=== PATIENT | female | born 1960 | race Caucasian/White ===

== ENCOUNTER 2016-08-21 13:02 | Emergency (ER) | payer OTHER ==
[~2016-08-21] VITALS: Ht 165.1 cm; Wt 59.0 kg
[~2016-08-21 13:02] MED LIST: ALPRAZOLAM0.5 MG PO; AMOXICILLIN500 M2 PO; ASPIRIN81 M1 PO; ATIVAN1 MG PO; BACTRIM DS 8001 TA1 PO; BUPROPION HYDR150 M1 PO; CELEXA10 MG PO; CLARITIN10 MG PO; KENALOG 0.1% OI15 GM PO; LISINOPRIL10 MG PO; MEDROL DOSEPAK4 MG PO; MELOXICAM7.5 MG PO; Motrin,Rufen800 MG PO; NAPROSYN500 MG PO; NORCO 325 MG-51 TAB PO; SYNTHROID25 MCG PO; TRAZADONE HYDR100 MG PO; VISTARIL25 M1 PO; ZANTAC 150150 MG PO; ZOCOR20 MG PO; ZOCOR5 MG PO
[2016-08-21 14:11] LABS: BASO # 0.1 10*3/uL (0.0-0.1); EOS # 0.7 10*3/uL (0.0-0.4); EOS % 5.6 % (1.0-4.0); HEMATOCRIT 42.7 % (37.0-47.0); HEMOGLOBIN 14.1 g/dl (12.0-16.0); LYMPH # 3.9 10*3/uL (1.3-4.4); LYMPH % 31.9 % (27.0-41.0); MEAN CELL VOLUME 87.5 fl (81.0-99.0); MEAN CORPUSCULAR HGB 28.9 pg (27.0-31.0); MEAN PLATELET VOLUME 11.9 fl (9.6-12.3); MONO # 0.6 10*3/uL (0.1-1.0); MONO % 4.9 % (3.0-9.0); NEUT # 6.9 10*3/uL (2.3-7.9); NEUT % 56.4 % (47.0-73.0); PLATELET COUNT AUTOMATED 279 10*3/uL (130-400); RED BLOOD COUNT 4.88 10*6/uL (4.10-5.10); RED CELL DISTRI WIDTH 13.7 % (0-14.5); WHITE BLOOD COUNT 12.2 10*3/uL (4.8-10.8)
[2016-08-21 14:24] LABS: ALBUMIN 3.2 gm/dl (3.1-4.5); ALKALINE PHOSPHATASE 77 U/L (45-117); BILIRUBIN, TOTAL 0.4 mg/dl (0.2-1.0); BUN 14 mg/dl (7-24); CARBON DIOXIDE 28 mmol/L (21-32); CHLORIDE 102 mmol/L (98-107); CPK 69 U/L (26-192); EST GLOM FILT AFRICAN AMERICAN > 60 ml/min; GLUCOSE 145 mg/dL (65-99); POTASSIUM 4.3 mmol/L (3.5-5.1); SGOT/AST 16 IU/L (3-35); SGPT/ALT 20 U/L (12-78); SODIUM 139 mmol/L (136-145); TOTAL PROTEIN 7.3 gm/dL (6.4-8.2)
== END 2016-08-21 15:24 | disposition left against medical advice (07) ==
LOC: ED 13:02
PROVIDERS: Internal Medicine
DX: M54.5 Low back pain (principal); M25.562 Pain in left knee; F17.200 Nicotine dependence, unspecified, uncomplicated; Z90.49 Acquired absence of other specified parts of digestive tract; W10.9XXA Fall (on) (from) unspecified stairs and steps, initial encounter; Y93.89 Activity, other specified; Y92.9 Unspecified place or not applicable; Y99.9 Unspecified external cause status

== ENCOUNTER → 2016-08-24 | Outpatient (CLI) | payer OTHER ==
[~2016-08-24] MED LIST changes: +ASPIRIN ADULT L81 M2 PO; +ATORVASTATIN CA20 M1 PO; +CYCLOBENZAPRINE5 M3 PO; +HYDROCODONE BIT1 T11 PO; +IBU800 M1 PO; +LEVOTHYROXIN0.025 M1 PO; +METFORMIN HCL1000 MG PO; +METOPROLOL SUCC25 M2 PO
== END | disposition home or self-care (01) ==
LOC: RAD 13:12
DX: M47.896 Other spondylosis, lumbar region (principal); M54.5 Low back pain

== ENCOUNTER 2016-10-12 13:19 | Emergency (ER) | payer OTHER ==
[~2016-10-12] VITALS: Ht 165.1 cm; Wt 68.0 kg
[~2016-10-12 13:19] MED LIST changes: -ASPIRIN ADULT L81 M2 PO; -ATORVASTATIN CA20 M1 PO; -CYCLOBENZAPRINE5 M3 PO; -HYDROCODONE BIT1 T11 PO; -IBU800 M1 PO; -LEVOTHYROXIN0.025 M1 PO; -METFORMIN HCL1000 MG PO; -METOPROLOL SUCC25 M2 PO
[2016-10-12] MEDS ORDERED: METFORMIN HCL1000 MG PO (13:33)
[2016-10-12] MEDS ORDERED: ATORVASTATIN CA20 M1 PO (13:33)
[2016-10-12] MEDS ORDERED: LEVOTHYROXIN0.025 M1 PO (13:33)
[2016-10-12] MEDS ORDERED: METOPROLOL SUCC25 M2 PO (13:33)
[2016-10-12] MEDS ORDERED: ASPIRIN ADULT L81 M2 PO (13:33)
[2016-10-12] MEDS ORDERED: IBU800 M1 PO (13:34)
[2016-10-12] MEDS ORDERED: CYCLOBENZAPRINE5 M3 PO (13:34)
[2016-10-12] MEDS ORDERED: HYDROCODONE BIT1 T11 PO (15:01)
== END 2016-10-12 15:18 | disposition home or self-care (01) ==
LOC: ED 13:19
DX: M75.91 Shoulder lesion, unspecified, right shoulder (principal); F17.200 Nicotine dependence, unspecified, uncomplicated; Z79.82 Long term (current) use of aspirin; Z79.899 Other long term (current) drug therapy; Z87.11 Personal history of peptic ulcer disease

== ENCOUNTER 2017-02-11 13:28 | Emergency (ER) | payer OTHER ==
[~2017-02-11] VITALS: Ht 165.1 cm; Wt 68.0 kg
[~2017-02-11 13:28] MED LIST changes: +ASPIRIN ADULT L81 M2 PO; +ATORVASTATIN CA20 M1 PO; +CYCLOBENZAPRINE5 M3 PO; +HYDROCODONE BIT1 T11 PO; +IBU800 M1 PO; +LEVOTHYROXIN0.025 M1 PO; +METFORMIN HCL1000 MG PO; +METOPROLOL SUCC25 M2 PO
[2017-02-11] MEDS ORDERED: LIDEX 0.05% CRE15 GM T (14:06)
== END 2017-02-11 14:31 | disposition home or self-care (01) ==
LOC: ED 13:28
DX: L97.921 Non-pressure chronic ulcer of unspecified part of left lower leg limited to breakdown of skin (principal); L97.911 Non-pressure chronic ulcer of unspecified part of right lower leg limited to breakdown of skin; R03.0 Elevated blood-pressure reading, without diagnosis of hypertension; F17.200 Nicotine dependence, unspecified, uncomplicated; Z79.82 Long term (current) use of aspirin; Z79.899 Other long term (current) drug therapy

== ENCOUNTER → 2017-02-15 | Outpatient (CLI) | payer OTHER ==
[~2017-02-15] MED LIST changes: +LIDEX 0.05% CRE15 GM T
--- NOTE | ~2017-02-15 | PR ---
[place], [place] PROGRESS NOTE NAME: GERALDINE FRIEDMAN [facility] #: [id number] UNIT #: [id number] ROOM: DOCTOR: JOSE FOLEY DPM BIRTHDATE: [birth year] DOS: 02/15/2017 SUBJECTIVE: This is a new patient seen at [facility] for a chief complaint of bilateral lower extremity ulcers. The patient had been seen in the Emergency Department back on 02/14. She was then seen by her primary care doctor for these complaints and sent over to the Wound Center. She had been using bacitracin on the wounds and today she presents with wounds on the bilateral lower extremity. Right lower leg ulcer measures 1.4 x 0.6 x 0.1 cm. Left lower leg ulcer measures 4.5 x 4 x 0.1 cm. Right lower leg lateral ulcer is 0.5 x 0.5 x 0.1 cm and right lower leg lateral distal ulcer is 0.6 x 0.4 x 0.1 cm. Wound bases are clean and granular and somewhat dry. The periwound area is inflamed with a dermatitis petechial type rash. The patient states it is very, very itchy. Remaining tissues are normal temperature and no evidence of cellulitis present. IMPRESSION: Venous ulcerations, bilateral lower extremity, complicated by dermatitis. PLAN: 1. Evaluate. 2. The patient was unable to get ABIs in clinic, so we have sent her for noninvasive vascular studies with ABIs, segmental pressures and PVRs. In the meantime, she will use Puracol to the open areas of the wound and periwound. She will use triamcinolone acetonide. We will cover this area with a bordered foam dressing and see the patient back in 2 weeks for followup of this complaint. JOSE FOLEY DPM CM:PNTRANS [phone] JOSE FOLEY DPM 02/15/17 2342 interface
== END ==
LOC: WOUNDCARE 02:26
DX: I87.313 Chronic venous hypertension (idiopathic) with ulcer of bilateral lower extremity (principal); L97.212 Non-pressure chronic ulcer of right calf with fat layer exposed; L97.222 Non-pressure chronic ulcer of left calf with fat layer exposed

== ENCOUNTER → 2017-03-01 | Outpatient (CLI) | payer OTHER ==
--- NOTE | ~2017-03-01 | PR ---
[place], [place] PROGRESS NOTE NAME: GERALDINE FRIEDMAN [facility] #: [id number] UNIT #: [id number] ROOM: DOCTOR: JOSE FOLEY DPM BIRTHDATE: [birth year] DOS: 03/01/2017 SUBJECTIVE: The patient was seen for followup of lower extremity ulcerations, bilateral lower legs. The patient is doing well. She does have a new complaint on her left lower extremity, she had a dog scratch. This area is red and inflamed, but there is no true open area necessarily. All lower extremity ulcers have scabbed over. They are all measuring 0.1 x 0.1 x 0.1 but there is a lesion on the anterior part of the left ankle dorsally that is erythematous. There are several scratches from her dog and some early abscess, cellulitis indications at this area. Again, no open wound, no draining, no odor coming from this area. IMPRESSION: Cellulitis due to trauma from her dog. All other ulcers are resolving nicely. PLAN: 1. Evaluate. 2. We will start the patient on Keflex 500 mg tablets p.o. b.i.d. for a series of 7 days. She is also to put a triple antibiotic ointment and a Band-Aid to the area. I would like to see her back next week. She is to call Saturday if these areas are not improving. JOSE FOLEY DPM CM:PNSHIRA [id number] JOSE FOLEY DPM 03/01/17 1324 interface
== END | disposition home or self-care (01) ==
LOC: US 00:34
DX: L97.819 Non-pressure chronic ulcer of other part of right lower leg with unspecified severity (principal); L97.829 Non-pressure chronic ulcer of other part of left lower leg with unspecified severity; L03.116 Cellulitis of left lower limb; L03.115 Cellulitis of right lower limb

== ENCOUNTER → 2017-03-08 | Outpatient (CLI) | payer OTHER ==
--- NOTE | ~2017-03-08 | PR ---
[place], [place] PROGRESS NOTE NAME: GERALDINE FRIEDMAN [facility] #: [id number] UNIT #: [id number] ROOM: DOCTOR: JOSE FOLEY DPM BIRTHDATE: [birth year] DOS: 03/08/2017 SUBJECTIVE: The patient was seen for followup of traumatic injury, left lower leg. She was placed on Keflex last week and has been putting Neosporin on the area. Today, it is noted the area is still reddened. The central area of the trauma is now somewhat ____. Again, there is some erythema around the periphery of the wound. It has not completely abated. She has taken the Keflex. She is down to one single dose. It is a clustered area. It measures 2 cm x 5 cm x 0.1 cm. No odor or active drainage noted and erythema is just localized around the area of the dog trauma. IMPRESSION. Scratch with cellulitis still present on the left lower leg, trauma injury. PLAN: 1. Evaluate. 2. We will use Xeroform and a bordered foam to cover the area, placing the patient on Bactrim and I would like to see her back in 1 week for followup. JOSE FOLEY DPM CM:ARLENE [id number] JOSE FOLEY DPM 03/08/17 1220 interface
== END | disposition home or self-care (01) ==
LOC: WOUNDCARE 03:44
DX: I87.332 Chronic venous hypertension (idiopathic) with ulcer and inflammation of left lower extremity (principal); L97.222 Non-pressure chronic ulcer of left calf with fat layer exposed

== ENCOUNTER → 2017-03-15 | Outpatient (CLI) | payer OTHER ==
--- NOTE | ~2017-03-15 | PR ---
[place], [place] PROGRESS NOTE NAME: GERALDINE FRIEDMAN [facility] #: [id number] UNIT #: [id number] ROOM: DOCTOR: JOSE FOLEY DPM BIRTHDATE: [birth year] DOS: 03/15/2017 SUBJECTIVE: The patient was seen at [facility] for followup of left lower leg midline scratch from her dog. She was placed on Cipro last week. She has got 1 pill left. She has been applying bandages as directed. No new complaints. PHYSICAL EXAMINATION: It is noted that the scratches are still somewhat open. There is still some erythema and irritation around the wound. The main scratch measures 2.5 x 5.2 x 0.1 cm. Some devitalized tissue was noted in the base of the wound, which was debrided with the 15 blade through to dermis. The patient tolerated the procedure well. No drainage, odor, or bleeding noted at this time. IMPRESSION: Ulceration due to traumatic injury scratch from her dog. PLAN: 1. Evaluate. 2. The patient is to continue with her oral antibiotics until they are complete. We are going to start her on Hydrofera Blue to the area. I would like to see her back next week. Hopefully, that will help to dissipate the bacterial contaminants in the wound and allow it to completely heal. If any problems arise in the meantime, she is to call the Wound Care Center. JOSE FOLEY DPM CM:PNTRANS [phone] JOSE FOLEY DPM 03/16/17 0057 interface
== END | disposition home or self-care (01) ==
LOC: WOUNDCARE 02:01
DX: L97.821 Non-pressure chronic ulcer of other part of left lower leg limited to breakdown of skin (principal)

== ENCOUNTER → 2017-04-05 | Outpatient (CLI) | payer OTHER ==
--- NOTE | ~2017-04-05 | PR ---
[place], [place] PROGRESS NOTE NAME: GERALDINE FRIEDMAN [facility] #: [id number] UNIT #: [id number] ROOM: DOCTOR: JOSE FOLEY DPM BIRTHDATE: [birth year] DOS: 04/05/2017 SUBJECTIVE: The patient seen for left lower leg midline scratch and ulcer. She has been using the Hydrofera Blue as directed, although today, she presents with a new wound. PHYSICAL EXAMINATION: It is noted that the other scratch area has resolved, but there is a new wound adjacent and posterior to this area that is measuring 0.7 cm x 0.4 cm x 0.1 cm. It is somewhat fibrotic at the base and erythematous around the periphery of the wound. No purulent discharge or extending cellulitis is noted at this time. IMPRESSION: Skin scratch with irritation, possibly new, because of her dog or it should be noted that other areas of excoriation are present throughout her body. PLAN: 1. Evaluate. 2. We will have the patient use Hydrofera Blue on this area every other day and she is to use her steroid cream on her legs 3 times daily to prevent excoriation of these areas. I would like to see her back in 1 week to follow up. JOSE FOLEY DPM CM:PNTRANS [phone] JOSE FOLEY DPM 04/06/1706 interface
== END | disposition home or self-care (01) ==
LOC: WOUNDCARE 02:43
DX: I87.332 Chronic venous hypertension (idiopathic) with ulcer and inflammation of left lower extremity (principal); L97.222 Non-pressure chronic ulcer of left calf with fat layer exposed

== ENCOUNTER → 2017-04-12 | Outpatient (CLI) | payer OTHER ==
--- NOTE | ~2017-04-12 | PR ---
[place], [place] PROGRESS NOTE NAME: GERALDINE FRIEDMAN [facility] #: [id number] UNIT #: [id number] ROOM: DOCTOR: JOSE FOLEY DPM BIRTHDATE: [birth year] DOS: 04/12/2017 SUBJECTIVE: The patient was seen at [facility] for followup of left leg ulcerations. The patient has been using the Hydrofera Blue and hydrocortisone cream daily as directed. No new complaints. PHYSICAL EXAMINATION: It is noted that the wounds are healed today. There are no open areas. Everything has epithelialized and healed. Today, she will be discharged from the wound center as healed. She is to watch the areas, if any problems arise, she is to call the Wound Care Center immediately. JOSE FOLEY DPM CM:ARLENE [phone] JSOE FOLEY DPM 04/24/17 09 interface
== END | disposition home or self-care (01) ==
LOC: WOUNDCARE 02:41
DX: I87.332 Chronic venous hypertension (idiopathic) with ulcer and inflammation of left lower extremity (principal); L97.222 Non-pressure chronic ulcer of left calf with fat layer exposed; L97.821 Non-pressure chronic ulcer of other part of left lower leg limited to breakdown of skin

== ENCOUNTER → 2017-07-08 | Outpatient (CLI) | payer OTHER ==
[2017-07-08 13:34] LABS: HEMATOCRIT 41.1 % (37.0-47.0); HEMOGLOBIN 13.8 g/dl (12.0-16.0); MEAN CELL VOLUME 85.4 fl (81.0-99.0); MEAN CORPUSCULAR HGB 28.7 pg (27.0-31.0); MEAN CORPUSCULAR HGB CONC 33.6 g/dl (33.0-37.0); MEAN PLATELET VOLUME 12.4 fl (9.6-12.3); RED BLOOD COUNT 4.81 10*6/uL (4.10-5.10); RED CELL DISTRI WIDTH 13.2 % (0-14.5); WHITE BLOOD COUNT 7.3 10*3/uL (4.8-10.8)
[2017-07-08 14:04] LABS: ALBUMIN 2.3 gm/dl (3.1-4.5); ALKALINE PHOSPHATASE 96 U/L (45-117); BUN 15 mg/dl (7-24); CHLORIDE 102 mmol/L (98-107); CHOLESTEROL 259 mg/dL (<200); CREATININE 0.98 mg/dL (0.55-1.02); HDL CHOLESTEROL 46 mg/dl (40-60); LDL CHOLESTEROL 136 mg/dL (9-159); POTASSIUM 4.5 mmol/L (3.5-5.1); SGOT/AST 25 IU/L (3-35); SGPT/ALT 26 U/L (12-78); SODIUM 137 mmol/L (136-145); TOTAL PROTEIN 6.7 gm/dL (6.4-8.2); TRIGLYCERIDES 386 mg/dl (<150); VLDL CHOLESTEROL 77 mg/dL (6-40)
== END | disposition home or self-care (01) ==
LOC: LAB 13:19
PROVIDERS: Registered Nurse Flight
DX: E78.5 Hyperlipidemia, unspecified (principal); I10 Essential (primary) hypertension; E03.9 Hypothyroidism, unspecified; J01.10 Acute frontal sinusitis, unspecified

== ENCOUNTER → 2017-08-15 | Outpatient (CLI) | payer OTHER | END | disposition home or self-care (01) | LOC: LAB 10:46 | DX: R73.9 Hyperglycemia, unspecified (principal) ==

== ENCOUNTER → 2017-11-07 | Outpatient (CLI) | payer OTHER ==
[2017-11-07 11:12] LABS: HEMATOCRIT 41.8 % (37.0-47.0); HEMOGLOBIN 13.8 g/dl (12.0-16.0); MEAN CELL VOLUME 85.8 fl (81.0-99.0); MEAN CORPUSCULAR HGB 28.3 pg (27.0-31.0); MEAN PLATELET VOLUME 12.2 fl (9.6-12.3); RED BLOOD COUNT 4.87 10*6/uL (4.10-5.10); RED CELL DISTRI WIDTH 13.7 % (0-14.5); WHITE BLOOD COUNT 7.9 10*3/uL (4.8-10.8)
[2017-11-07 11:40] LABS: ALBUMIN 2.3 gm/dl (3.1-4.5); ALKALINE PHOSPHATASE 97 U/L (45-117); BUN 15 mg/dl (7-24); CHLORIDE 105 mmol/L (98-107); CHOLESTEROL 254 mg/dL (<200); CREATININE 0.81 mg/dL (0.55-1.02); HDL CHOLESTEROL 44 mg/dl (40-60); POTASSIUM 4.8 mmol/L (3.5-5.1); SGOT/AST 21 IU/L (3-35); SGPT/ALT 23 U/L (12-78); SODIUM 138 mmol/L (136-145); TOTAL PROTEIN 6.8 gm/dL (6.4-8.2); TRIGLYCERIDES 404 mg/dl (<150)
== END | disposition home or self-care (01) ==
LOC: LAB 10:38
PROVIDERS: Registered Nurse Flight
DX: E11.9 Type 2 diabetes mellitus without complications (principal); I10 Essential (primary) hypertension; E78.5 Hyperlipidemia, unspecified; E03.9 Hypothyroidism, unspecified

== ENCOUNTER → 2018-02-03 | Outpatient (CLI) | payer OTHER ==
[2018-02-03 10:17] LABS: HEMATOCRIT 43.3 % (37.0-47.0); HEMOGLOBIN 14.1 g/dl (12.0-16.0); MEAN CELL VOLUME 86.9 fl (81.0-99.0); MEAN CORPUSCULAR HGB 28.3 pg (27.0-31.0); MEAN CORPUSCULAR HGB CONC 32.6 g/dl (33.0-37.0); RED BLOOD COUNT 4.98 10*6/uL (4.10-5.10); RED CELL DISTRI WIDTH 13.5 % (0-14.5)
[2018-02-03 10:47] LABS: ALBUMIN 2.1 gm/dl (3.1-4.5); ALKALINE PHOSPHATASE 89 U/L (45-117); BUN 14 mg/dl (7-24); CHLORIDE 101 mmol/L (98-107); CHOLESTEROL 288 mg/dL (<200); CREATININE 0.85 mg/dL (0.55-1.02); HDL CHOLESTEROL 44 mg/dl (40-60); POTASSIUM 4.7 mmol/L (3.5-5.1); SGOT/AST 19 IU/L (3-35); SGPT/ALT 25 U/L (12-78); SODIUM 136 mmol/L (136-145); TOTAL PROTEIN 6.4 gm/dL (6.4-8.2); TRIGLYCERIDES 516 mg/dl (<150)
== END | disposition home or self-care (01) ==
LOC: LAB 09:38
PROVIDERS: Registered Nurse Flight
DX: E11.65 Type 2 diabetes mellitus with hyperglycemia (principal); I10 Essential (primary) hypertension; E03.9 Hypothyroidism, unspecified

== ENCOUNTER → 2018-02-04 | Outpatient (CLI) | payer OTHER | END | disposition home or self-care (01) | LOC: RAD 13:21 | DX: M47.896 Other spondylosis, lumbar region (principal); M48.061 Spinal stenosis, lumbar region without neurogenic claudication ==

== ENCOUNTER 2018-04-07 18:35 | Emergency (ER) | payer OTHER ==
[~2018-04-07] VITALS: Ht 165.1 cm; Wt 67.6 kg
[2018-06-13] MEDS ORDERED: AUGMENTIN 875-875 MG PO (13:44)
[2018-06-13] MEDS ORDERED: POLYTRIM 1000010 M1 OPH (13:44)
[2018-06-13] MEDS ORDERED: LOSARTAN POTASS50 M1 PO (13:46)
== END 2018-04-07 20:15 | disposition home or self-care (01) ==
LOC: ED 18:35
DX: S60.221A Contusion of right hand, initial encounter (principal); F17.200 Nicotine dependence, unspecified, uncomplicated; Z79.82 Long term (current) use of aspirin; Z79.899 Other long term (current) drug therapy; Z90.49 Acquired absence of other specified parts of digestive tract; W23.0XXA Caught, crushed, jammed, or pinched between moving objects, initial encounter; Y93.01 Activity, walking, marching and hiking; Y92.89 Other specified places as the place of occurrence of the external cause; Y99.8 Other external cause status

== ENCOUNTER → 2018-09-26 | Outpatient (CLI) | payer OTHER ==
[~2018-09-26] MED LIST changes: +AUGMENTIN 875-875 MG PO; +LOSARTAN POTASS50 M1 PO; +POLYTRIM 1000010 M1 OPH; +PREDNISONE20 M1 PO; +ROBAXIN500 M1 PO
[2018-09-26 10:10] LABS: BASO # 0.1 10*3/uL (0.0-0.1); EOS # 0.5 10*3/uL (0.0-0.4); HEMATOCRIT 41.2 % (37.0-47.0); HEMOGLOBIN 13.9 g/dl (12.0-16.0); LYMPH # 2.7 10*3/uL (1.3-4.4); LYMPH % 27.4 % (27.0-41.0); MEAN CELL VOLUME 86.4 fl (81.0-99.0); MEAN CORPUSCULAR HGB 29.1 pg (27.0-31.0); MEAN CORPUSCULAR HGB CONC 33.7 g/dl (33.0-37.0); MEAN PLATELET VOLUME 13.4 fl (9.6-12.3); MONO # 0.5 10*3/uL (0.1-1.0); MONO % 4.8 % (3.0-9.0); NEUT % 61.4 % (47.0-73.0); PLATELET COUNT AUTOMATED 251 10*3/uL (130-400); RED BLOOD COUNT 4.77 10*6/uL (4.10-5.10); RED CELL DISTRI WIDTH 13.6 % (0-14.5); WHITE BLOOD COUNT 9.8 10*3/uL (4.8-10.8)
[2018-09-26 10:40] LABS: ALBUMIN 3.1 gm/dl (3.1-4.5); CREATININE 1.16 mg/dL (0.55-1.02); POTASSIUM 4.4 mmol/L (3.5-5.1); TOTAL PROTEIN 7.3 gm/dL (6.4-8.2)
[2018-09-26 10:46] LABS: THYROID STIM HORMONE (HS) 1.89 uIU/ml (0.358-4.75)
== END | disposition home or self-care (01) ==
LOC: LAB 09:14
PROVIDERS: Registered Nurse Flight
DX: E11.65 Type 2 diabetes mellitus with hyperglycemia (principal); E78.5 Hyperlipidemia, unspecified; E03.9 Hypothyroidism, unspecified; I10 Essential (primary) hypertension; E55.9 Vitamin D deficiency, unspecified

== ENCOUNTER → 2018-10-01 | Outpatient (CLI) | payer OTHER ==
[2018-10-02 11:06] LABS: CREATININE,URINE 18.6 mg/dL (Not Estab.); MICRO ALBUMIN/CRE RATIO 3980.6 (0.0-30.0)
== END | disposition home or self-care (01) ==
LOC: LAB 11:10
PROVIDERS: Registered Nurse Flight
DX: E11.65 Type 2 diabetes mellitus with hyperglycemia (principal); E78.5 Hyperlipidemia, unspecified; E03.9 Hypothyroidism, unspecified; I10 Essential (primary) hypertension; E55.9 Vitamin D deficiency, unspecified

== ENCOUNTER → 2018-12-30 | Outpatient (CLI) | payer OTHER ==
[2018-12-30 09:52] LABS: BASO # 0.1 10*3/uL (0.0-0.1); BASO % 0.9 % (0.0-1.0); EOS # 0.5 10*3/uL (0.0-0.4); EOS % 5.3 % (1.0-4.0); HEMATOCRIT 37.8 % (37.0-47.0); HEMOGLOBIN 12.4 g/dl (12.0-16.0); LYMPH # 2.5 10*3/uL (1.3-4.4); LYMPH % 24.6 % (27.0-41.0); MEAN CELL VOLUME 89.6 fl (81.0-99.0); MEAN CORPUSCULAR HGB 29.4 pg (27.0-31.0); MEAN CORPUSCULAR HGB CONC 32.8 g/dl (33.0-37.0); MEAN PLATELET VOLUME 12.2 fl (9.6-12.3); MONO # 0.5 10*3/uL (0.1-1.0); NEUT # 6.4 10*3/uL (2.3-7.9); NEUT % 63.9 % (47.0-73.0); PLATELET COUNT AUTOMATED 242 10*3/uL (130-400); RED BLOOD COUNT 4.22 10*6/uL (4.10-5.10); RED CELL DISTRI WIDTH 13.3 % (0-14.5); WHITE BLOOD COUNT 10.1 10*3/uL (4.8-10.8)
[2018-12-30 10:31] LABS: ALBUMIN 3.1 gm/dl (3.1-4.5); CREATININE 1.13 mg/dL (0.55-1.02); POTASSIUM 4.5 mmol/L (3.5-5.1); TOTAL PROTEIN 7.1 gm/dL (6.4-8.2)
[2018-12-30 11:23] LABS: THYROID STIM HORMONE (HS) 1.72 uIU/ml (0.358-4.75)
== END | disposition home or self-care (01) ==
LOC: LAB 09:31
PROVIDERS: Registered Nurse Flight
DX: E11.65 Type 2 diabetes mellitus with hyperglycemia (principal); E78.5 Hyperlipidemia, unspecified; E03.9 Hypothyroidism, unspecified; I10 Essential (primary) hypertension; E55.9 Vitamin D deficiency, unspecified

== ENCOUNTER 2019-01-02 09:41 | Emergency (ER) | payer OTHER ==
[~2019-01-02] VITALS: Wt 64.9 kg
[~2019-01-02 09:41] MED LIST changes: -PREDNISONE20 M1 PO; -ROBAXIN500 M1 PO
[2019-01-02] MEDS ORDERED: PREDNISONE20 M1 PO (11:47)
[2019-01-02] MEDS ORDERED: ROBAXIN500 M1 PO (11:47)
== END 2019-01-02 11:51 | disposition home or self-care (01) ==
LOC: ED 09:41
DX: S33.5XXA Sprain of ligaments of lumbar spine, initial encounter (principal); Z79.899 Other long term (current) drug therapy; Z79.82 Long term (current) use of aspirin; X50.9XXA Other and unspecified overexertion or strenuous movements or postures, initial encounter; Y93.89 Activity, other specified; Y92.098 Other place in other non-institutional residence as the place of occurrence of the external cause; Y99.8 Other external cause status

== ENCOUNTER → 2019-01-02 | Outpatient (CLI) | payer OTHER ==
[2019-01-03 10:05] LABS: CREATININE,URINE 94.2 mg/dL (Not Estab.)
[2019-01-03 11:07] LABS: MICRO ALBUMIN/CRE RATIO 4128.5 (0.0-30.0)
== END | disposition home or self-care (01) ==
LOC: LAB 09:27
PROVIDERS: Registered Nurse Flight
DX: E11.65 Type 2 diabetes mellitus with hyperglycemia (principal); E78.5 Hyperlipidemia, unspecified; E03.9 Hypothyroidism, unspecified; I10 Essential (primary) hypertension; E55.9 Vitamin D deficiency, unspecified

== ENCOUNTER → 2019-03-31 | Outpatient (CLI) | payer OTHER ==
[~2019-03-31] MED LIST changes: +PREDNISONE20 M1 PO; +ROBAXIN500 M1 PO
[2019-03-31 09:52] LABS: HEMATOCRIT 35.7 % (37.0-47.0); HEMOGLOBIN 11.7 g/dl (12.0-16.0); MEAN CELL VOLUME 88.6 fl (81.0-99.0); MEAN CORPUSCULAR HGB CONC 32.8 g/dl (33.0-37.0); MEAN PLATELET VOLUME 12.1 fl (9.6-12.3); RED BLOOD COUNT 4.03 10*6/uL (4.10-5.10); RED CELL DISTRI WIDTH 13.2 % (0-14.5); WHITE BLOOD COUNT 10.1 10*3/uL (4.8-10.8)
[2019-03-31 10:29] LABS: ALBUMIN 3.5 gm/dl (3.1-4.5); ALKALINE PHOSPHATASE 72 U/L (45-117); BUN 24 mg/dl (7-24); CHLORIDE 107 mmol/L (98-107); CHOLESTEROL 162 mg/dL (<200); CREATININE 1.02 mg/dL (0.55-1.02); HDL CHOLESTEROL 43 mg/dl (40-60); LDL CHOLESTEROL 69 mg/dL (9-159); POTASSIUM 4.4 mmol/L (3.5-5.1); SGOT/AST 24 IU/L (3-35); SGPT/ALT 33 U/L (12-78); SODIUM 138 mmol/L (136-145); TOTAL PROTEIN 7.3 gm/dL (6.4-8.2); TRIGLYCERIDES 251 mg/dl (<150); VLDL CHOLESTEROL 50 mg/dL (6-40)
[2019-03-31 10:36] LABS: THYROID STIM HORMONE (HS) 0.645 uIU/ml (0.358-4.75)
== END | disposition home or self-care (01) ==
LOC: LAB 09:14
PROVIDERS: Registered Nurse Flight
DX: E11.65 Type 2 diabetes mellitus with hyperglycemia (principal); E78.5 Hyperlipidemia, unspecified; E03.9 Hypothyroidism, unspecified

== ENCOUNTER 2019-05-19 11:08 | Emergency (ER) | payer OTHER ==
[~2019-05-19] VITALS: Ht 165.1 cm; Wt 61.7 kg
== END 2019-05-19 13:33 | disposition home or self-care (01) ==
LOC: ED 11:08
DX: S70.11XA Contusion of right thigh, initial encounter (principal); F17.200 Nicotine dependence, unspecified, uncomplicated; Z79.899 Other long term (current) drug therapy; Z79.2 Long term (current) use of antibiotics; Z79.82 Long term (current) use of aspirin; Z90.49 Acquired absence of other specified parts of digestive tract; W54.1XXA Struck by dog, initial encounter; Y93.89 Activity, other specified; Y92.098 Other place in other non-institutional residence as the place of occurrence of the external cause; Y99.8 Other external cause status

== ENCOUNTER → 2019-06-30 | Outpatient (CLI) | payer OTHER ==
[2019-06-30 11:34] LABS: ALBUMIN 3.6 gm/dl (3.1-4.5); BUN 21 mg/dl (7-24); CHLORIDE 107 mmol/L (98-107); CHOLESTEROL 150 mg/dL (<200); CREATININE 1.06 mg/dL (0.55-1.02); POTASSIUM 4.3 mmol/L (3.5-5.1); SGOT/AST 30 IU/L (3-35); SGPT/ALT 37 U/L (12-78); SODIUM 139 mmol/L (136-145); TOTAL PROTEIN 7.5 gm/dL (6.4-8.2); TRIGLYCERIDES 217 mg/dl (<150); VLDL CHOLESTEROL 43 mg/dL (6-40)
[2019-06-30 11:43] LABS: ALKALINE PHOSPHATASE 81 U/L (45-117); HDL CHOLESTEROL 40 mg/dl (40-60); LDL CHOLESTEROL 67 mg/dL (9-159)
== END | disposition home or self-care (01) ==
LOC: LAB 10:28
PROVIDERS: Registered Nurse Flight
DX: E11.65 Type 2 diabetes mellitus with hyperglycemia (principal); E03.9 Hypothyroidism, unspecified; E78.5 Hyperlipidemia, unspecified

== ENCOUNTER → 2020-03-01 | Outpatient (CLI) | payer OTHER ==
[2020-03-01 09:42] LABS: BUN 20 mg/dl (7-24); CHLORIDE 108 mmol/L (98-107); CHOLESTEROL 211 mg/dL (<200); CREATININE 1.02 mg/dL (0.55-1.02); HDL CHOLESTEROL 47 mg/dl (40-60); LDL CHOLESTEROL 106 mg/dL (9-159); POTASSIUM 4.5 mmol/L (3.5-5.1); SODIUM 139 mmol/L (136-145); TRIGLYCERIDES 289 mg/dl (<150); VLDL CHOLESTEROL 58 mg/dL (6-40)
== END | disposition home or self-care (01) ==
LOC: LAB 08:49
PROVIDERS: Registered Nurse Flight
DX: E11.9 Type 2 diabetes mellitus without complications (principal); E03.9 Hypothyroidism, unspecified; E78.5 Hyperlipidemia, unspecified

== ENCOUNTER → 2020-11-17 | Outpatient (CLI) | payer OTHER | END | disposition home or self-care (01) | LOC: RAD 09:21 | PROVIDERS: ATTEND Nurse Practitioner Primary Care | DX: M25.78 Osteophyte, vertebrae (principal) ==

== ENCOUNTER 2022-02-03 01:45 | Emergency (ER) | payer OTHER ==
[2022-02-03 02:13] LABS: HEMATOCRIT 28.9 % (37.0-47.0); MEAN CELL VOLUME 91.5 fl (81.0-99.0); MEAN CORPUSCULAR HGB 27.2 pg (27.0-31.0); MEAN CORPUSCULAR HGB CONC 29.8 g/dl (33.0-37.0); MEAN PLATELET VOLUME 13.3 fl (9.6-12.3); NUCLEATED RED BLOOD CELL 0.1 10*3/uL (0.0-0.0); NUCLEATED RED BLOOD CELL 0.9 % (0.0-0.0); PLATELET COUNT AUTOMATED 188 10*3/uL (130-400); RED BLOOD COUNT 3.16 10*6/uL (4.10-5.10); RED CELL DISTRI WIDTH 14.6 % (0-14.5)
[2022-02-03 02:28] LABS: CREATININE 1.65 mg/dL (0.55-1.02); POTASSIUM 4.7 mmol/L (3.5-5.1)
[2022-02-03 02:32] LABS: MANUAL DIFF REFLEX YES
[2022-02-03 03:04] LABS: BASOPHILS 1 % (0-1); BURR CELLS FEW; PLATELET SUFFICIENCY NORMAL (NORMAL); POLYCHROMASIA SLIGHT; TOTAL CELLS COUNTED 100 #CELLS
[2022-02-03 03:05] LABS: ACANTHOCYTES FEW
== END 2022-02-03 03:38 ==
LOC: ED 01:45
PROVIDERS: Emergency Medicine
DX: I46.9 Cardiac arrest, cause unspecified (principal); Z79.899 Other long term (current) drug therapy; Z79.82 Long term (current) use of aspirin